=== PATIENT | female | born 1965 | race Caucasian/White ===

== ENCOUNTER 2017-07-10 07:57 | Emergency (ER) | payer OTHER, BC ==
--- NOTE | 2017-07-10 07:59 | ER Report ---
History and Physical Time Seen By MD: 07:58 HPI/ROS CHIEF COMPLAINT: Right thigh pain HISTORY OF PRESENT ILLNESS: Patient is a 51-year-old female who slipped and fell outside in wet floor at a hotel. She landed on her right posterior thigh and is having pain. Patient attempted pain relief with both Tylenol and Advil with minimal relief. Patient is able to ambulate with discomfort. She denies any other injury. Allergies: Coded Allergies: Penicillins (Verified Allergy, Intermediate, 07/10/17) Home Meds Active Scripts Oxycodone Hcl/Acetaminophen (PERCOCET 5-325 MG TABLET) 1 Each Tablet, 1 EACH PO Q6H for PAIN, #15 TAB 0 Refills Prov:SANTOSH AGUIRRE MD 07/10/17 Past Medical/Surgical History Noncontributory Constitutional Vital Sign - Last 24 Hours 07/10/17 08:01 Temp 98.3 Pulse 84 Resp 18 B/P (MAP) 136/90 Pulse Ox 96 O2 Delivery Room Air Physical Exam General appearance: Alert no distress. Musculoskeletal : Patient is able to ambulate. She has tenderness to the right posterior thigh there is no palpable deformity. Patient has small contusion to the area. Medical Decision Making ED Course/Re-evaluation ED Course 07/10/2017 8:19:18 am patient with contusion to right posterior thigh. Plan will be Steve wrapped and pain medication. Decision to Disposition Date: July 10, 2017 Decision to Disposition Time: 08:19 Depart Departure Latest Vital Signs Vital Signs Date Time Temp Pulse Resp B/P (MAP) Pulse Ox O2 Delivery O2 Flow Rate FiO2 07/10/17 08:01 98.3 84 18 136/90 96 Room Air Impression: Primary Impression: Contusion Condition: Improved Disposition: HOME OR SELF-CARE New Scripts Oxycodone Hcl/Acetaminophen (PERCOCET 5-325 MG TABLET) 1 Each Tablet 1 EACH PO Q6H for PAIN, #15 TAB 0 Refills Prov: SANTOSH AGUIRRE MD 07/10/17 Patient Instructions: Contusion in Adults (ED) Problem Qualifiers Primary Impression: Contusion Encounter type: initial encounter Contusion area: lower leg Laterality: right Qualified Codes: S80.11XA - Contusion of right lower leg, initial encounter SANTOSH AGUIRRE MD July 10, 2017 07:59
[2017-07-10 08:01] VITALS: BP 136/90
[2017-07-10] MEDS ORDERED: APAP/HYDROCODONE 325/5 TAB PO ONE (08:15)
[2017-07-10] MEDS ORDERED: OXYC-865 PO (08:22)
== END 2017-07-10 08:28 | disposition home or self-care (01) ==
LOC: ER 08:00
DX: S80.11XA Contusion of right lower leg, initial encounter (principal)
CPT/HCPCS: 99282